=== PATIENT | male | born 1990 | race Caucasian/White ===

== ENCOUNTER 2017-01-28 10:39 | Inpatient (IN) | payer OTHER ==
--- NOTE | ~2017-01-28 | DS ---
Unit #: [id number] #: [id number] Patient: SHERRON THRASHER [id number] [facility] [place] [address] [id number] I MR#: [id number] NAME: SHERRON THRASHER ROOM: [facility] Age: 26 Sex: M Admission Date: 01/28/2017 : 1990 Discharge Date: 02/01/2017 Attending Physician: Rema Buckner M.D. Primary Care Physician: Primary Care Physician No DISCHARGE SUMMARY IDENTIFYING DATA Mr. Thrasher is a 26-year-old single white male, who is a resident of [place], [place], and was self-referred to the hospital on a voluntary basis. DISCHARGE DIAGNOSES Psychiatric: Opioid dependence, moderate and acute withdrawals; methamphetamine dependence, moderate; opioid-induced mood disorder. Medical: None. Stressors: Moderate psychosocial stressors. HISTORY OF PRESENT ILLNESS Please see initial psychiatric evaluation for details. PAST PSYCHIATRIC HISTORY Please see initial psychiatric evaluation for details. PAST MEDICAL HISTORY Please see initial psychiatric evaluation for details. HOSPITAL COURSE The patient was [facility] and was oriented to the hospital environment. Routine p.r.n. medications were initiated, and he was started back on his home medications and detox protocol was initiated as well. He was taking the medications regularly and was tolerating them fairly well and was able to show a decent and therapeutic response and as such, it was decided that he will be discharged home and will continue treatment on an outpatient basis. DISCHARGE MEDICATIONS None. DISCHARGE CONDITION Stable. PROGNOSIS Fair. Dictated by... Rema Buckner M.D. IAA/modl Unit #: [id number] #: [id number] Patient: SHERRON THRASHER TD: 02/01/2017 06:56 JOB #: [id number] DISCHARGE SUMMARY X Rema Buckner MD X DISCHARGE SUMMARY
--- NOTE | ~2017-01-28 | PN ---
Unit #: [id number] #: [id number] Patient: SHERRON THRASHER [id number] [facility] [address] [place] [address] [id number] MR#: [id number] NAME: SHERRON THRASHER ROOM: [facility] Age: 26 Sex: M Admission Date: 01/28/2017 : 1990 Attending Physician: Rema Buckner M.D. Admitting Physician: Rema Buckner M.D. Primary Care Physician: Primary Care Physician Roya FRANKEL PROGRESS NOTES DATE 01/30/2017 DISCUSSION Mr. Thrasher is a 26-year-old, white male with substance abuse and mood disorder who was seen today and chart was reviewed and case was discussed with the staff. He has been anxious, withdrawn, depressed and seclusive to himself as he was laying in his bed and reports not feeling good and he has been complaining of anxiety and depression and irritability. He has been taking the medication and tolerating them fairly well with no reported side effects. MENTAL STATUS EXAM Young white male who was casually dressed with fair personal hygiene, appears to be in no acute distress or discomfort. He was awake and alert on interaction with intact orientation. His mood was anxious with congruent affect. He denies any suicidal or homicidal ideation. Also, denies any auditory or visual hallucinations. His insight and judgement remains slightly impaired. TREATMENT PLAN We will continue him on his current medications and treatment protocol. We will monitor his response and make further adjustments as needed. Dictated by... Flor Reddy/lety TD: 02/01/2017 00:48 JOB #: [id number] [facility] PROGRESS NOTES X Rema Buckner MD PROGRESS NOTE
--- NOTE | ~2017-01-28 | PA ---
Unit #: [id number] #: [id number] Patient: SHERRON THRASHER [id number] [facility] [address] [place] [address] [id number] I MR#: [id number] NAME: SHERRON THRASHER ROOM: [facility]184 Age: 26 Sex: M Admission Date: 01/28/2017 : 1990 Date of Assessment: 01/28/2017 Attending Physician: Rema Buckner M.D. Admitting Physician: Rema Buckner M.D. Primary Care Physician: Primary Care Physician No PSYCHIATRIC ASSESSMENT IDENTIFYING DATA Mr. Thrasher is a 26-year-old single white male, who is a resident of [place], [place] and was self-referred to the hospital on a voluntary basis. CHIEF COMPLAINT "I'm detoxing and I'm having withdrawal symptoms." HISTORY OF PRESENT ILLNESS Mr. Thrasher is a 26-year-old white male, who was initially assessed last night and did not meet criteria for inpatient detox. He presented again with significant withdrawal symptoms such as elevated pulse, chills, restlessness, dilated pupil, joint aches, runny nose, vomiting, tremors, anxiety, and scored 23 on his COWS indicating significant withdrawal symptoms and recommendation for inpatient level of care was made. He upon presentation stated "I have been planning on going to [facility]. I originally went there. I have been using heroin and meth for the past couple of weeks, every day. I got to the point where I needed to stop. It got out of hand losing everything really quickly and already lost them." He does report increasing depression, anxiety, irritability, restlessness, and feelings of hopelessness and helplessness, though he denied having any suicidal ideations. SUBSTANCE ABUSE HISTORY The patient reports extensive history of substance abuse and dependence including crack cocaine, opioids and methamphetamine, and currently IV heroin and methamphetamine has been his drug of choice. PAST PSYCHIATRIC HISTORY The patient has had a history of inpatient chemical dependency treatment at [facility], [facility], and [facility]. Review of the medical records indicate currently he is not active in any treatment program and is not seeing a psychiatrist and not taking any psychotropic medications. PAST MEDICAL HISTORY No acute or chronic medical illnesses. ALLERGIES No known medication allergies. CURRENT MEDICATIONS None. Unit #: [id number] #: [id number] Patient: SHERRON THRASHER PERSONAL AND SOCIAL HISTORY A 26-year-old white male, who reports that he is single, unemployed and essentially homeless and has poor social support system. MENTAL STATUS EXAMINATION Young white male, who was casually dressed with fair personal hygiene, appears to be in no acute distress or discomfort. He was awake and alert on interaction with intact orientation to time, place, and person. His mood was anxious and depressed with a congruent affect. His speech was slow and goal directed. He denies any suicidal or homicidal ideations, and also denies any auditory or visual hallucinations. His insight and judgment remain significantly impaired. DIAGNOSTIC IMPRESSION Psychiatric: Opioid dependence, moderate, in acute withdrawals; methamphetamine dependence, moderate; opioid-induced mood disorder. Medical: None. Stressors: Moderate psychosocial stressors. TREATMENT PLAN 1. The patient has presented with history of mood disorder and substance abuse and has been decompensating and will need inpatient hospitalization for detoxification, safety, and stabilization. We will start him on detox protocol. We will closely monitor for any worsening withdrawal symptoms. 2. Supportive therapy was provided to the patient. 3. Safe, structured, and nourishing environment will be provided. ESTIMATED LENGTH OF STAY 5 to 7 days. ABILITY TO HELP SELF Limited. WILLINGNESS TO HELP SELF The patient appears to be willing to help self. STRENGTHS 1. Communicative. 2. Cooperative. PROBLEMS 1. Chronic chemical dependency. 2. Chronic dysphoric symptoms. 3. Poor social support system. DISCHARGE CRITERIA This will be contingent upon the patient's ability to go through detox without having any significant withdrawal symptoms and his ability to stay safe to himself, particularly after discharge from the hospital. Dictated by... Flor Reddy/jose TD: 01/29/2017 08:31 JOB #: [id number] Unit #: [id number] #: [id number] Patient: SHERRON THRASHER PSYCHIATRIC ASSESSMENT X Rema Buckner MD PSYCHIATRIC ASSESSMENT
--- NOTE | ~2017-01-28 | PN ---
Unit #: [id number] #: [id number] Patient: SHERRON THRASHER [id number] [facility] [address] [place] [address] [id number] I MR#: [id number] NAME: SEHRRON THRASHER ROOM: [facility] Age: 26 Sex: M Admission Date: 01/28/2017 : 1990 Attending Physician: Rema Buckner M.D. Admitting Physician: Rema Buckner M.D. Primary Care Physician: Primary Care Physician Roya FRANKEL PROGRESS NOTES DATE OF SERVICE: 01/31/2017 SUBJECTIVE Mr. Thrasher is a 26-year-old white male, who was seen today and chart was reviewed, and case was discussed with the staff. He has been anxious, withdrawn, though has not shown any agitation or irritability. He has been cooperative with treatment recommendations and has been taking the medications and tolerating them fairly well. MENTAL STATUS EXAMINATION Young white male, who was casually dressed with fair personal hygiene, appears to be in no acute distress or discomfort. He was awake and alert on interaction with intact orientation. His mood was anxious with a congruent affect. He denies any suicidal or homicidal ideations, and also denies any auditory or visual hallucinations. His insight and judgment remain slightly impaired. TREATMENT PLAN 1. We will continue him on his current medications and treatment protocol. We will monitor his response to the medications and make adjustments as needed. 2. We will continue to follow up. Dictated by... Flor Reddy/jose TD: 02/01/2017 06:02 JOB #: [id number] [facility] PROGRESS NOTES X Rema Buckner MD PROGRESS NOTE
--- NOTE | ~2017-01-28 | CO ---
Unit #: [id number] #: [id number] Patient: SHERRON RÍOS [id number] [place] [address] [id number] I MR#: [id number] NAME: SHERRON RÍOS ROOM: [facility] Age: 26 Sex: M Admission Date: 01/28/2017 : 1990 Attending Physician: Rema Buckner M.D. Consultation Date: 01/31/2017 CONSULTATION REPORT HISTORY OF PRESENT ILLNESS Sherron reports burning with urination for the past 2 days. He also has had increased frequency of urination and is urinating about every 2 hours. He does not wake up to urinate however and does not have any back or abdominal pain. He has not noticed any blood in his urine. No odor, but occasionally, his urine is darker than normal. UA did show positive leukocytes with no nitrites or blood. He also did have 10 to 25 white blood cells. He reports that he recently has been having unprotected sex for the past few weeks and has also been using shared needles for IV heroin injection. He has no other complaints. PHYSICAL EXAMINATION CARDIAC: Regular rate and rhythm. No murmur, gallop, or rub. RESPIRATORY: Clear to auscultation bilaterally. ABDOMEN: Bowel sounds positive in all four quadrants. No abdominal tenderness to palpation. No CVA tenderness or flank pain. ASSESSMENT AND PLAN 1. Dysuria. We will begin Cipro 500 mg p.o. b.i.d. for 5 days and also obtain a urine culture and sensitivity. We will also send urine for gonorrhea and chlamydia testing. 2. IV heroin use with needle sharing. We will obtain fourth generation HIV, hepatitis panel, and serum HSV 1 and 2. The patient was recommended to follow up with primary care provider. Social work consult has been placed. The patient will have repeat lab testing in 3 to 6 months. Dictated by... Lelo Funes A.P.R.N. for Flor Fragoso/jose TD: 01/31/2017 17:30 JOB #: [id number] Unit #: [id number] #: [id number] Patient: SHERRON RÍOS CONSULTATION REPORT X LELO WALLACE APRN CONSULTATION REPORT
--- NOTE | ~2017-01-28 | HP ---
Unit #: [id number] #: [id number] Patient: SHERRON RÍOS [id number] [facility] [address] [place] [address] [id number] I MR#: [id number] NAME: SHERRON RÍOS ROOM: 84 Age: 26 Sex: M Admission Date: 01/28/2017 : 1990 Attending Physician: Rema Buckner M.D. Admitting Physician: Rema Buckner M.D. Primary Care Physician: Primary Care Physician No HISTORY AND PHYSICAL HISTORY OF PRESENT ILLNESS Sherron is a 26 year old admitted to [facility] because of his polysubstance abuse which includes IV heroin and methamphetamine. PAST MEDICAL HISTORY Long history of poly-illicit substance abuse to include IV drugs. PAST SURGICAL HISTORY Nothing reported. ALLERGIES No known drug allergies. SOCIAL HISTORY Smokes 1/2 pack per day. Denies alcohol. Admits to a long history of illicit drug use to include IV drugs. FAMILY HISTORY Medically noncontributory. REVIEW OF SYSTEMS CONSTITUTIONAL: No fever or chills. HEENT: Denies any sore throat, ear pain or runny nose. CARDIOVASCULAR: Denies chest pain, irregular heart rhythm or palpitations. CHEST: Denies shortness of breath or cough. No hemoptysis. GASTROINTESTINAL: Denies nausea, vomiting, diarrhea or chronic constipation. ENDOCRINE: Denies history of increased thirst or urination. No recent significant weight loss or gain. GENITOURINARY: Denies dysuria, frequency, or hematuria. SKIN: Denies any rashes. HEMATOLOGIC: Denies history of increased bleeding or bruising. MUSCULOSKELETAL: Denies any hot, swollen joints. No generalized muscle pain. NEUROLOGIC: Denies problems with vision or speech. No frequent, severe headaches. No numbness, tingling or weakness in any extremities. Denies loss of bladder or bowel control. CURRENT MEDICATIONS Detox protocol. PHYSICAL EXAMINATION GENERAL: Alert, well-nourished, in no apparent distress. Unit #: [id number] #: [id number] Patient: SHERRON RÍOS VITAL SIGNS: Blood pressure 128/68, heart rate 92, respirations 16, temperature 98.6. WEIGHT: 182. HEIGHT: 6 feet 0 inches. SKIN: Warm and dry without rash or lesion. HEENT: Normocephalic. TMs not viewed. Oral and nasal passages clear. Conjunctivae clear. PERRLA. EOMs intact. NECK: Supple without lymphadenopathy or thyromegaly. HEART: Regular rate and rhythm without murmur. LUNGS: Clear. ABDOMEN: Soft, nontender. : Not done. EXTREMITIES: No evidence of cyanosis, clubbing or edema. Moves all without focal deficit. NEUROLOGICAL: Grossly within normal limits. Cranial Nerves: II: Visual minaya are intact. III, IV AND : Extraocular movements are intact. Pupils are equal, round and reactive to light. V: Facial sensation is grossly normal. VII: Facial movements and expression are normal. VIII: Auditory acuity grossly intact. IX, X: Uvula is midline. Phonation is normal. XI: Patient shrugs shoulders and turns head normally. XII: Tongue protrudes in the midline. Sensory and Motor Function: Sensory and motor sensation is grossly normal. Motor: moves all extremities well. Coordination: Gait is normal. Deep Tendon Reflexes: Intact. IMPRESSION Psychiatric admission. RECOMMENDATIONS PSYCHIATRIC: Per psychiatrist. MEDICAL: See no contraindications to participate in facility's activities. MEDICAL PROGNOSIS Good. MEDICAL CONDITION Stable. Dictated by... Annabella Frazier P.A.-C. for Flor Fragoso/carlos TD: 01/28/2017 23:19 JOB #: [id number] Unit #: [id number] #: [id number] Patient: SHERRON RÍOS HISTORY AND PHYSICAL X Annabella Frazier X HISTORY AND PHYSICAL
--- NOTE | ~2017-01-28 | CO ---
Unit #: [id number] #: [id number] Patient: SHERRON RÍOS [id number] [facility] [address] [place] [address] [id number] I MR#: [id number] NAME: SHERRON RÍOS ROOM: [facility] Age: 26 Sex: M Admission Date: 01/28/2017 : 1990 Attending Physician: Rema Buckner M.D. Primary Care Physician: Primary Care Physician No CONSULTATION REPORT REASON FOR CONSULT Abnormal labs. SUBJECTIVE "I don't know what they are talking about. Maybe I have hepatitis C because I share needles with people. I feel fine." OBJECTIVE Vital signs within normal limits. DIAGNOSTIC STUDIES LABORATORY DATA: Labs show positive amphetamine, 1+ leuko esterase in urine, 10-25 WBC's per high power field in urine. Blood sugar of 143. ASSESSMENT Elevated blood sugar and positive WBC's in urine. PLAN Re-draw fasting BMP tomorrow and recheck urine. Dictated by... Sascha Veronica/carlos TD: 01/30/2017 18:39 JOB #: [id number] CONSULTATION REPORT X Gretchen Blackwell APR X CONSULTATION REPORT
--- NOTE | ~2017-01-28 | PN ---
Unit #: [id number] #: [id number] Patient: SHERRON RÍOS [id number] [facility] [address] [place] [address] [id number] I MR#: [id number] NAME: SHERRON RÍOS ROOM: [facility] Age: 26 Sex: M Admission Date: 01/28/2017 : 1990 Attending Physician: Rema Buckner M.D. Admitting Physician: Rema Buckner M.D. Primary Care Physician: Primary Care Physician Roya FRANKEL PROGRESS NOTES DATE OF SERVICE: 01/29/2017 SUBJECTIVE Mr. Lane is a 26-year-old white male with substance abuse and mood disorder, who was seen today and chart was reviewed, and case was discussed with the staff. He has been anxious, withdrawn, and rather seclusive to himself. Meanwhile, he has been cooperative with the treatment recommendations and has been taking the medications and tolerating them fairly well with no reported side effects. MENTAL STATUS EXAMINATION Young white male, who was casually dressed with fair personal hygiene, appears to be in no acute distress or discomfort. He was awake and alert on interaction with intact orientation. His mood was anxious with a congruent affect. His speech was slow and goal directed. He reports having suicidal ideation, but denies any homicidal ideation. His insight and judgment remain slightly impaired. TREATMENT PLAN 1. We will continue him on his current medications and treatment protocol. We will monitor his response to the medications and make further adjustments as needed. 2. We will continue to follow up. Dictated by... Flor Reddy/jose TD: 01/30/2017 00:30 JOB #: [id number] [facility] PROGRESS NOTES X Rema Buckner MD PROGRESS NOTE
[2017-01-29 09:35] LABS: URINE APPEARANCE CLEAR; URINE BILIRUBIN NEG (NEG); URINE BLOOD NEG (NEG); URINE COLOR YELLOW; URINE GLUCOSE NEG (NEG); URINE KETONE NEG (NEG); URINE LEUKOCYTE ESTERASE 1+ (NEG); URINE NITRATE NEG (NEG); URINE PH 7.5 (5-8); URINE PROTEIN NEG (NEG); URINE UROBILINOGEN 0.2 MG/DL (NEG)
[2017-01-29 09:38] LABS: URBCS1 AUWI 0-2 /[HPF] (0-2); URINE BACTERIA AUWI NEG (NEGATIVE); URINE SQUAMOUS EPITHELIAL CELL NONE SEEN /[HPF]
[2017-01-29 10:14] LABS: AMPHETAMINE POS (NEG); BARBITURATES NEG (NEG); BENZODIAZEPINES NEG (NEG); COCAINE NEG (NEG); MARIJUANA NEG (NEG); OPIATES NEG (NEG); TRICYCLIC ANTIDEPRESSANTS NEG (NEG); U METHADONE NEG (NEG)
[2017-01-29 12:24] LABS: BASOPHIL# 0.1 X10e3 (0-0.3); EOSINOPHIL# 0.2 X10e3 (0-0.7); EOSINOPHIL% 2.1 % (0.0-7.0); HEMOGLOBIN 14.5 gm/dL (13.0-16.0); LYMPHOCYTE# 1.8 X10e3 (1.0-3.5); LYMPHOCYTE% 22.4 % (17.0-45.0); MEAN CELL VOLUME 92.6 FL (83-96); MEAN CORPUSCULAR HEMOGLOBIN 30.5 PG (28-34); MEAN PLATELET VOLUME 8.1 FL (6.5-11.5); MONOCYTE# 0.6 X10e3 (0-1.0); MONOCYTE% 8.3 % (3.0-12.0); NEUTROPHIL# 5.2 X10e3 (1.5-7.1); NEUTROPHIL% 66.2 % (40-75); PLATELET COUNT 266 X10e3 (140-420); RED BLOOD COUNT 4.76 X10e (3.90-5.60); RED CELL DISTRIBUTION WIDTH 13.1 % (11.0-15.5); WHITE BLOOD COUNT 7.8 X10e3 (4.0-10.5)
[2017-01-29 12:42] LABS: ALBUMIN SERUM 3.9 g/dL (3.5-5.0); ALKALINE PHOSPHATASE 59 U/L (32-92); ALT (SGPT) 16 U/L (10-40); AST (SGOT) 18 U/L (10-42); BILIRUBIN,TOTAL 0.7 mg/dL (0.2-2.0); BLOOD UREA NITROGEN 15 mg/dL (9-23); CALCIUM SERUM 9.5 mg/dL (8.4-10.2); CARBON DIOXIDE 29 mmol/L (22-31); CHLORIDE 105 mmol/L (100-111); CREATININE SERUM 1.2 mg/dL (0.6-1.4); GLOM FILT RATE Estimated ABOVE60 mL/min (>60); GLUCOSE FASTING 143 mg/dL (70-110); PROTEIN TOTAL SERUM 6.5 g/dL (6.0-8.3); SODIUM 140 mmol/L (135-145)
[2017-01-29 12:44] LABS: DIFF IND NO; THYROID STIMULATING HORMONE 0.39 uIU/ml (0.34-5.60)
[2017-01-29 12:51] LABS: FREE THYROXIN (T4) 0.68 ng/dL (0.58-1.64)
[2017-01-31 11:35] LABS: BLOOD UREA NITROGEN 13 mg/dL (9-23); CALCIUM SERUM 9.1 mg/dL (8.4-10.2); CARBON DIOXIDE 29 mmol/L (22-31); CHLORIDE 108 mmol/L (100-111); GLOM FILT RATE Estimated ABOVE60 mL/min (>60); GLUCOSE FASTING 103 mg/dL (70-110); SODIUM 143 mmol/L (135-145)
[2017-02-01 09:29] LABS: URINE APPEARANCE CLEAR; URINE BILIRUBIN NEG (NEG); URINE BLOOD NEG (NEG); URINE COLOR YELLOW; URINE GLUCOSE NEG (NEG); URINE KETONE NEG (NEG); URINE LEUKOCYTE ESTERASE NEG (NEG); URINE NITRATE NEG (NEG); URINE PH 7.5 (5-8); URINE PROTEIN NEG (NEG); URINE SPECIFIC GRAVITY 1.022 (1.003-1.035); URINE UROBILINOGEN 0.2 MG/DL (NEG)
[2017-02-01 09:46] LABS: CULTURE INDICATED? NO
[2017-02-03 07:07] LABS: HA AB IGM (HEPPAN) Nonreactive (Nonreactive); HB CORE AB IGM (HEPPAN) Nonreactive (Nonreactive); HB S AG (HEPPAN) Nonreactive (Nonreactive); HEP C AB (HEPPAN) Nonreactive (Nonreactive); HEP C AB SIGNAL TO CUTOFF 0.02 ratio (<1.00)
[2017-02-03 12:09] LABS: CHLAMYDIA TRACH Not Detected (Not Detected); N GONOR Not Detected (Not Detected)
[2017-02-03 14:59] LABS: HSV 1 DNA Not Detected (Not Detected); HSV 2 DNA Not Detected (Not Detected)
== END 2017-02-01 10:10 | disposition home or self-care (01) | DRG 897 ==
LOC: P1E 10:39
PROVIDERS: Psychiatry & Neurology Psychiatry
PROC: HZ2ZZZZ Detoxification Services for Substance Abuse Treatment (ICD-10-PCS; principal; 2017-01-28)
DX: F11.23 Opioid dependence with withdrawal (principal); F15.20 Other stimulant dependence, uncomplicated; F11.24 Opioid dependence with opioid-induced mood disorder; R73.9 Hyperglycemia, unspecified; R30.0 Dysuria
CPT/HCPCS: 80048; 80053; 80074; 80307; 81003; 84439; 84443; 85025; 86592; 87491; 87529; 87591; 87806